=== PATIENT | male | born 1955 | race Caucasian/White ===

== ENCOUNTER 2016-09-25 06:06 | Outpatient (CLI) ==
[2013-07-30 07:19] VITALS: BMI 20.7
[2016-09-25] MEDS ORDERED: DOBUTAMINE 250 ML IV ONE (07:04)
[2016-09-25] MEDS ORDERED: ATROPINE SULFATE PFS ONE (07:05)
--- NOTE | 2016-09-25 09:41 | NM ---
Cardiac Stress Test HISTORY: Chest pain. COMPARISON: 07/01/2011. TECHNIQUE: Resting: The patient was injected with 4.07 mCi of 99m technetium Sestamibi (Cardiolite) intravenou sly after which a "resting" SPECT study of the heart was performed. Stress: The stress portion of the examination was cancelled due to low blood pressure and heart rate . FINDINGS: The resting perfusion images demonstrate a large region of reduced to absent activity in the inferior wall consistent with the previously observed large inferior wall myocardial infarction. IMPRESSION: 1. Left ventricular myocardial perfusion demonstrates findings consistent with a previously observe d large inferior wall myocardial infarction. 2. The stress portion of the examination was cancelled due to low blood pressure and heart rate.
== END 2016-09-25 06:07 | disposition home or self-care (01) ==
LOC: CAR 06:06
PROVIDERS: ATTEND Emergency Medicine
DX: R07.9 Chest pain, unspecified (principal); I25.10 Atherosclerotic heart disease of native coronary artery without angina pectoris; Z95.5 Presence of coronary angioplasty implant and graft; Z72.0 Tobacco use

== ENCOUNTER 2016-09-25 08:02 | Emergency (ER) ==
[2016-09-25 08:07] VITALS: BP 111/67; TEMP 97.1; BMI 22.5
[2016-09-25 08:21] LABS: BASOPHILS % (AUTO) 0.5 % (0.0-3.0); EOSINOPHILS # (AUTO) 0.2 K/ul (0.0-0.7); HEMATOCRIT 40.2 % (42.0-52.0); IMMATURE GRANULOCYTE % (AUTO) 0.4 % (0.0-5.0); LYMPHOCYTES # (AUTO) 2.5 K/uL (0.60-3.4); LYMPHOCYTES % (AUTO) 33.1 (10.0-50.0); MEAN CORPUSCULAR HEMOGLOBIN 31.3 pg (27.0-31.0); MEAN CORPUSCULAR HGB CONC 34.8 (31.8-35.4); MEAN CORPUSCULAR VOLUME 89.7 fl (80.0-94.0); MONOCYTES # (AUTO) 0.6 K/uL (0.4-2.0); MONOCYTES % (AUTO) 8.3 (0-10); NEUTROPHILS # (AUTO) 4.2 K/ul (2.0-6.9); NEUTROPHILS % (AUTO) 55.7; PLATELET COUNT 209 10^3/uL (140-440); RED BLOOD COUNT 4.48 10^6/ul (4.70-6.10); WHITE BLOOD COUNT 7.55 K/ul (4.2-10.2)
--- NOTE | 2016-09-25 08:21 | ED.PDOC ---
General ED Provider: Dr. VARSHA SANTORO JR Chief Complaint: Chest Pain Stated Complaint: patient was to have a dobutamine stress test and while they were starting his iv he became diaphoretic and pale, and pressure to midsternal area. patient was nauseated. blood pressure was 64/40 and pulse was 35[End]5- 10 min 97.1 51 16 100% 111/67 : 07/30/13 has had two heart attacks, no pain with either [ sore in mouth for 3 months (note difficult historian. Skin: (3mmlesion left lateral nose at nare/labial crease, 5mm lesion left lateral upper lip at inner [place] border) Hypothyroid (I used to have it it went away), Dyslipidemia: [place] (2003 and 2009), Hypertension(melanoma on back, note normal lesion uvula). Family History: Heart (3 brothers before 50 of [place]), Hypertension, Diabetes , Cancer. ENT:Nose normal (note flat fleshy raised lesion),, Neoplasm of skin. Instructions: Acute Nausea and Vomiting (ED), Chronic Diarrhea (ED) Time Seen by Physician: 08:19 Mode of Arrival: Walk-In Information Source: Patient Exam Limitations: No limitations Primary Care Provider: ANGEL OVALLE Nursing and Triage Documentation Reviewed and Agree: No Review of Systems - Review Of Systems Constitutional: Reports: Diaphoresis, Malaise Eyes: Reports: No symptoms Ears, Nose, Mouth, Throat: Reports: No symptoms Respiratory: Reports: Short of air Cardiac: Reports: Chest pain, Palpitations GI: Reports: Nausea : Reports: No symptoms Musculoskeletal: Reports: No symptoms Skin: Reports: No symptoms Neurological: Reports: Anxiety Endocrine: Reports: No symptoms Hematologic/Lymphatic: Reports: No symptoms All Other Systems: Other Past Medical History - Past Medical History Endocrine: Reports: None. Denies: Hypothyroid ( (I used to have it it went away )) Cardiovascular: Reports: CAD (has had two heart attacks, no pain with either, [place] (2003 and 2009)) Respiratory: Reports: COPD Hematological: Reports: None Gastrointestinal: Reports: None Genitourinary: Reports: None Neuro/Psych: Reports: None Musculoskeletal: Reports: None Cancer: Reports: Other ((melanoma on back, note normal lesion uvula)) - Surgical History General Surgical History: Reports: Stent - Family History Family History: Reports: Heart (Heart (3 brothers before 50 of [place])), Hypertension, Diabetes, Cancer - Social History Smoking Status: Current every day smoker Amount Smokes or Chewing Tobacco Used Daily: 1PPD Smoking Cessation Counseling Time: > 3 min - 10 min Hx Substance Use: No Alcohol Screening: None Physical Exam - Physical Exam Appearance: Well-appearing, Thin Pain Distress: Moderate Eyes: GAYATRI, EOMI, Conjunctiva clear ENT: Ears normal, Nose normal, Oropharynx normal Neck: Supple Respiratory: Airway patent, Breath sounds clear, Breath sounds equal, Breath sounds diminished, Respirations nonlabored Cardiovascular: RRR, Pulses normal, No rub, No murmur GI/: Soft, Nontender, No masses, Bowel sounds normal, No Organomegaly Musculoskeletal: Normal strength, ROM intact, No edema, No calf tenderness Skin: Diaphoretic Neurological: Sensation intact, Alert, Oriented Psychiatric: Anxious Interpretation - Radiology Interpretation Radiology Interpretation By: Radiologist Radiology Results: Negative Exam Interpreted: CXR - EKG Interpretation Time of EKG #1: 07:55 Rate: Sammy Rhythm: Sinus Ectopy: None [place]: Left ST Segment: Other (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3 H MCHC 34.8 RDW Coeff of Davi 12.7 Plt Count 209 Immature Gran % (Auto) 0.4 Neut % (Auto) 55.7 Lymph % (Auto) 33.1 Josephine % (Auto) 8.3 Eos % (Auto) 2.0 Baso % (Auto) 0.5 Immature Gran # (Auto) 0.0 Neut # 4.2 Lymph # 2.5 Josephine # 0.6 Eos # 0.2 Baso # 0.0 D-Dimer 0.56 Sodium 141 Potassium 3.7 Chloride 107 Carbon Dioxide 24 Anion Gap 13.7 BUN 8 Creatinine 0.93 Estimated GFR (MDRD) 83.00 BUN/Creatinine Ratio 8.60 Glucose 119 H Calcium 9.3 Total Bilirubin 0.53 AST 18 ALT 16 Alkaline Phosphatase 71 Total Creatine Kinase 87 Troponin I < 0.0100 B-Natriuretic Peptide 49 Total Protein 6.7 Albumin 3.6 Globulin 3.1 Albumin/Globulin Ratio 1.16 TSH 4.395 Orders Category Date Time Status EKG-(ED ONLY) Stat CARDIO 09/25/16 08:10 Ordered ABG Stat LAB 09/25/16 08:09 Stop Req B-TYPE NATRIURETIC PEPTIDE Stat LAB 09/25/16 08:10 Completed CBC W/ AUTO DIFF Stat LAB 09/25/16 08:10 Completed COMPREHENSIVE METABOLIC PANEL Stat LAB 09/25/16 08:10 Completed CREATINE KINASE Stat LAB 09/25/16 08:10 Completed D-DIMER Stat LAB 09/25/16 08:10 Completed TROPONIN I Stat LAB 09/25/16 08:10 Completed TSH [THYROID STIMULATING HORMONE] Stat LAB 09/25/16 08:15 Completed CHEST, 1V AP ONLY Stat RADS 09/25/16 08:10 Completed Vital Signs: Temp Pulse Resp BP Pulse Ox 09/25/16 08:03 97.1 F L 51 L 16 111/67 100 CHRISTY Risk Score CHRISTY Risk Score: Risk Score Odds of by 30D 0 0.1 (0.1-0.2) 1 0.3 (0.2-0.3) 2 0.4 (0.3-0.5) 3 0.7 (0.6-0.9) 4 1.2 (1.0-1.5) 5 2.2 (1.9-2.6) 6 3.0 (2.5-3.6) 7 4.8 (3.8-6.1) Departure - Departure Time of Disposition: 09:36 Disposition: TSF SHORT-TRM HOSP Discharge Problem: Chest pain Instructions: Acute Coronary Syndrome (ED) Condition: Fair Pt referred to PMD for follow-up: Yes (FOLLOW UP CARDIOLOGY THEN WILL FOLLOW) Allergies/Adverse Reactions: Allergies No Known Allergies Allergy (Unverified 09/25/16 08:09) Home Medications: Ambulatory Orders Albuterol Sulfate [Proair Hfa] 2 puff IH Q6H 03/09/13 Atorvastatin Calcium [Lipitor] 20 mg PO BEDTIME 03/09/13 Clopidogrel Bisulfate [Plavix] 75 mg PO DAILY 03/09/13 Lisinopril [Zestril] 20 mg PO DAILY 03/09/13 Lorazepam [Ativan] 1 mg PO PRN PRN 03/09/13 Niacin [Niaspan] 1,000 mg PO DAILY 03/09/13 Ranitidine HCl [Zantac] 150 mg PO BIDAC 03/09/13
--- NOTE | 2016-09-25 08:28 | DI ---
EXAM: Chest one view, frontal view only. HISTORY: Chest pain. COMPARISON: 06/28/2016. FINDINGS: The heart size is normal. There is no pulmonary vascular congestion. The lungs are cecilia r. No pleural effusion or pneumothorax is seen. No acute osseous abnormality is identified. Since the prior study, there has been no significant interval change. IMPRESSION: No acute cardiopulmonary process.
[2016-09-25 08:49] LABS: ALANINE AMINOTRANSFERASE 16 U/L (12-78); ALBUMIN 3.6 g/dL (3.4-5.0); ALBUMIN/GLOBULIN RATIO 1.16; ALKALINE PHOSPHATASE 71 U/L (56-119); ANION GAP 13.7; ASPARTATE AMINO TRANSFERASE 18 U/L (15-37); BILIRUBIN,TOTAL 0.53 mg/dL (0.00-1.20); BLOOD UREA NITROGEN 8 mg/dL (7-18); CALCIUM 9.3 mg/dL (8.2-10.2); CARBON DIOXIDE 24 mmol/L (23-31); CHLORIDE 107 mmol/L (98-107); CREATINE KINASE 87 U/L; CREATININE 0.93 mg/dL (0.60-1.10); GLUCOSE 119 mg/dL (82-115); POTASSIUM 3.7 mmol/L (3.5-5.1); SODIUM 141 mmol/L (136-145); TOTAL PROTEIN 6.7 g/dL (5.8-8.1)
== END 2016-09-25 10:33 | disposition short-term general hospital (02) ==
LOC: ED 08:02
DX: R07.9 Chest pain, unspecified (principal); R00.2 Palpitations; I25.10 Atherosclerotic heart disease of native coronary artery without angina pectoris; I25.2 Old myocardial infarction; J44.9 Chronic obstructive pulmonary disease, unspecified; F17.210 Nicotine dependence, cigarettes, uncomplicated; E78.5 Hyperlipidemia, unspecified; Z79.899 Other long term (current) drug therapy; Z95.5 Presence of coronary angioplasty implant and graft
CPT/HCPCS: 36415; 80053; 82550; 83880; 84443; 84484; 85025; 85379; 93005; 93010; 99285

== ENCOUNTER 2016-09-25 10:34 | Outpatient (CLI) ==
[2016-09-25 08:07] VITALS: BMI 22.5
== END 2016-09-25 10:35 ==
LOC: AMBL 10:34
PROVIDERS: ATTEND Emergency Medicine
DX: R00.1 Bradycardia, unspecified (principal)

== ENCOUNTER 2019-01-14 08:33 | Emergency (ER) ==
[2019-01-14 08:43] VITALS: BP 122/78; TEMP 97.4; BMI 22.4
--- NOTE | 2019-01-14 09:45 | CT ---
EXAM: CT of the head without contrast History: Head trauma. Technique: Multiplanar CT images through the head were obtained without the administration of IV con trast Findings: There is mild mucosal thickening of the left maxillary sinus. Mastoid air cells are clear in general. No acute calvarial abnormalities. Intracranially the ventricular and cisternal spaces are normal in size, shape and configuration for a patient of this age. No dominant mass or midline shift. No hydrocephalous. No acute intracranial hemorrhage or abnormal extraaxial fluid collections. Impression: No acute intracranial process
--- NOTE | 2019-01-14 09:47 | CT ---
EXAM: CT of the cervical spine without contrast History: Head and neck trauma. Technique: Multiplanar CT images through the cervical spine were obtained without the administration of IV contrast Findings: The visualized upper lungs are clear. The visualized airway remains patent. No acute fracture or subluxation of the cervical spine. No prevertebral soft tissue swelling. Sever e disc space narrowing at C6-7 and moderate to severe disc space narrowing at C5-6 with endplate scle rosis and osteophyte formation. Bony spinal canal is not significantly compromised. Moderate to sev ere bilateral bony neural foraminal narrowing at C5-6 and C6-7 secondary to uncovertebral and facet h ypertrophy. Impression: No acute osseous abnormality of the cervical spine. Degenerative changes
--- NOTE | 2019-01-14 09:53 | CT ---
EXAM: CT of the maxillofacial region without contrast History: Left jaw pain and trauma. Technique: Multiplanar CT images through the maxillofacial region were obtained without the administ ration of IV contrast Findings: Orbits are intact. The visualized intracranial contents demonstrate no acute findings. T here is mild to moderate mucosal thickening and fluid within the left maxillary sinus. Paranasal sin uses are otherwise clear. Mastoid air cells are clear. Multiple missing teeth. No acute fracture o r dislocation. Osseous erosions of the head of the left mandibular condyle with widening of the temp oromandibular joint space possible due to synovial soft tissue thickening. Impression: 1. No acute fracture. 2. Erosive changes involving the head of the left mandibular condyle with widening of the left tempo romandibular joint space possibly due to synovial soft tissue thickening. Consider inflammatory or i nfectious arthropathy. 3. Left maxillary sinusitis
--- NOTE | 2019-01-14 10:07 | ED.PDOC ---
General ED Provider: Dr. CHUY ROSSI Chief Complaint: Syncope Stated Complaint: hada syncopal episde 3 days ago fell in the process injured left ja, neck present to emergency dept for evaluation of jaw pian Time Seen by Physician: 08:45 (seen with may at all times nofurther syncope reported ) Mode of Arrival: Walk-In Information Source: Patient Exam Limitations: No limitations Primary Care Provider: ANGEL OVALLE Nursing and Triage Documentation Reviewed and Agree: Yes Does patient meet sepsis criteria?: No System Inflammatory Response Syndrome: Not Applicable Sepsis Protocol: For patient's 13 years and over: Temp is 96.8 and below OR 101 and greater Pulse >90 BPM Resp >20/minute Acutely Altered Mental Status Are patient's symptoms suggestive of a new infection, such as: -Pneumonia -Skin, Soft Tissue -Endocarditis -UTI -Bone, Joint Infection -Implantable Device -Acute Abdominal Infection -Wound Infection -Meningitis -Blood Stream Catheter Infection -Unknown Trauma/Injury Complaint Exam - Facial Injury Complaint/Exam Location of Pain: Reports: Left (jaw, neck ,head ) Mechanism of Injury: Reports: Trauma Onset/Duration: 3 days ago Symptoms Are: Still present (jaw pain) Onset of Pain: Reports: Hours Initial Severity: Mild Current Severity: Mild Location: Reports: Discrete (left jaw ) Associated Signs and Symptoms: Denies: Swelling, Redness, Bruising, Numbness, Tingling, Fever, Polymyalgia, Weight loss, Visual defects, Tinnitus, Headache, Loss of consciousness Facial Findings: Present: Normal findings Differential Diagnoses: Fracture, Pain of unknown etiology Review of Systems - Review Of Systems Constitutional: Reports: No symptoms Eyes: Reports: No symptoms Ears, Nose, Mouth, Throat: Reports: Mouth pain (left jaw) Respiratory: Reports: No symptoms Cardiac: Reports: No symptoms GI: Reports: No symptoms : Reports: No symptoms Musculoskeletal: Reports: Neck pain Skin: Reports: No symptoms Neurological: Reports: Headache Endocrine: Reports: No symptoms Hematologic/Lymphatic: Reports: No symptoms All Other Systems: Reviewed and Negative Past Medical History - Past Medical History Previously Healthy: Yes Endocrine: Reports: None. Denies: Hypothyroid ( (I used to have it it went away )) Cardiovascular: Reports: CAD (has had two heart attacks, no pain with either, [place] (2003 and 2009)) Respiratory: Reports: COPD Hematological: Reports: None Gastrointestinal: Reports: None Genitourinary: Reports: None Neuro/Psych: Reports: None Musculoskeletal: Reports: None Cancer: Reports: Other ((melanoma on back, note normal lesion uvula)) - Surgical History General Surgical History: Reports: Stent - Family History Family History: Reports: Heart (Heart (3 brothers before 50 of [place])), Hypertension, Diabetes, Cancer - Social History Smoking Status: Current every day smoker Hx Substance Use: No Alcohol Screening: None - Immunizations Tetanus Shot up to Date: Yes Physical Exam - Physical Exam Appearance: Well-appearing, No pain distress, Well-nourished Eyes: GAYATRI, EOMI, Conjunctiva clear ENT: Ears normal, Nose normal, Oropharynx normal (left tmj tender , oral exam and air way wnl ) Respiratory: Airway patent, Breath sounds clear, Breath sounds equal, Respirations nonlabored Cardiovascular: RRR, Pulses normal, No rub, No murmur GI/: Soft, Nontender, No masses, Bowel sounds normal, No Organomegaly Musculoskeletal: Normal strength, ROM intact, No edema, No calf tenderness Skin: Warm, Dry, Normal color Neurological: Sensation intact, Motor intact, Reflexes intact, Cranial nerves intact, Alert, Oriented Psychiatric: Affect appropriate, Mood appropriate Interpretation - Radiology Interpretation Radiology Interpretation By: Radiologist Radiology Results: Positive (inflammatory injury left jwa) - Corn Miller Rate: Normal Rhythm: Sinus Ectopy: None - EKG Interpretation Rate: Normal Rhythm: Sinus (right bundel branch block) Ectopy: None Keller: Left (no changes from old tracing) Critical Care Note - Critical Care Note Total Time (mins): 0 Course - Course Hematology/Chemistry: 01/14/19 09:02 01/14/19 09:02 Orders, Labs, Meds: Lab Review 01/14/19 01/14/19 09:02 09:02 WBC 8.41 RBC 4.07 L Hgb 12.5 L Hct 37.0 L MCV 90.9 MCH 30.7 MCHC 33.8 RDW Coeff of Davi 13.1 Plt Count 217 Immature Gran % (Auto) 0.2 Neut % (Auto) 64.8 Lymph % (Auto) 21.8 Bradley % (Auto) 10.6 H Eos % (Auto) 2.4 Baso % (Auto) 0.2 Immature Gran # (Auto) 0.0 Neut # (Auto) 5.5 Lymph # (Auto) 1.8 Bradley # (Auto) 0.9 Eos # (Auto) 0.2 Baso # (Auto) 0.0 Sodium 135.8 Potassium 4.40 Chloride 103.3 Carbon Dioxide 25.9 Anion Gap 11.00 BUN 13.0 Creatinine 0.98 Estimated GFR (MDRD) 78.00 BUN/Creatinine Ratio 13.26 Glucose 104.7 Calcium 9.17 Total Bilirubin 0.68 AST 27.3 ALT 19.1 Alkaline Phosphatase 75.8 Total Protein 7.04 Albumin 4.27 Globulin 2.77 Albumin/Globulin Ratio 1.54 Orders Category Date Time Status EKG-(ED ONLY) Stat CARDIO 01/14/19 08:53 Completed CBC W/ AUTO DIFF Stat LAB 01/14/19 09:02 Completed COMPREHENSIVE METABOLIC PANEL Stat LAB 01/14/19 09:[address] CERVICAL SPINE W/O CONTRAST Stat RADS 01/14/19 08:[address] HEAD W/O CONTRAST Stat RADS 01/14/19 08:[address] MAXILLOFACIAL W/O CONTRAST Stat RADS 01/14/19 08:53 Completed Vital Signs: Temp Pulse Resp BP Pulse Ox 01/14/19 08:36 97.4 F L 64 20 122/78 96 Departure - Departure Time of Disposition: 10:09 Disposition: HOME SELF-CARE Discharge Problem: Jaw pain, Syncope Instructions: Syncope (ED), Temporomandibular Disorder (ED) Condition: Good Pt referred to PMD for follow-up: Yes IPMP verified?: No Additional Instructions: Please call your Family Physician as soon as possible to schedule a follow-up appointment.your jaw is not broken but due to impact of a fall as you had described can be inflammed Allergies/Adverse Reactions: Allergies No Known Allergies Allergy (Verified 01/14/19 08:55) Home Medications: Ambulatory Orders Albuterol Sulfate [Proair Hfa] 2 puff IH Q6H 03/09/13 Atorvastatin Calcium [Lipitor] 20 mg PO BEDTIME 03/09/13 Lisinopril [Zestril] 20 mg PO DAILY 03/09/13 Lorazepam [Ativan] 1 mg PO PRN PRN 03/09/13 Ranitidine HCl [Zantac] 150 mg PO BIDAC 03/09/13 Aspirin [Low Dose Aspirin Ec] 81 mg PO DAILY 11/05/16 Carvedilol 3.125 mg PO BID 11/05/16 Sacubitril/Valsartan [Entresto 24 Mg-26 Mg Tablet] 1 each PO QID 11/05/16 Spironolactone, Micronized [Spironolactone] 25 gm MC DAILY powder 11/05/16 Warfarin Sodium 5 mg PO DIRECTED 01/14/19 Warfarin Sodium 7.5 mg PO DIRECTED 01/14/19 Disposition Discussed With: Patient
== END 2019-01-14 10:20 | disposition home or self-care (01) ==
LOC: ED 08:33
DX: R68.84 Jaw pain (principal); M54.2 Cervicalgia; R51 Headache; R55 Syncope and collapse; W19.XXXA Unspecified fall, initial encounter; D64.9 Anemia, unspecified; I25.2 Old myocardial infarction; F17.210 Nicotine dependence, cigarettes, uncomplicated; Z79.899 Other long term (current) drug therapy
CPT/HCPCS: 36415; 80053; 85025; 93005; 93010; 99283

== ENCOUNTER 2019-01-27 06:39 | Outpatient (CLI) | payer OTHER ==
--- NOTE | 2019-01-28 10:05 | ECHO2D ---
Date of Exam: 01/27/19 Ordering Physician: DR. ANGEL OVALLE Room #: OP Reason for Echo: ISCHEMIC CARDIOMYOPATHY M-Mode Normal Adult Results LV Dimensions Normal Adult Results AoV Opening excursions >1.6 >1.6 LVEDD-base- 3.5-5.8 5.6 Ao root dimensions 2.0-3.7 3.4 LVESD-base- 3.1-4.6 L. Atrium dimensions 1.9-3.8 3.4 Post. Wall thickness 0.8-1.1 1.2 IV septum (thickness) 0.7-1.2 1.3 Post. Wall excursion 0.72-1.3 NORMAL Septal motion 0.2 Systolic motion R. Ventricular cavity 1.5-2.0 3.0 LVEF 60% 41% Paradoxical septal wall motion NORMAL 2-D : 2-D M Mode Echocardiogram was performed using apical four chamber and left parasternal long and short axis views. Mitral, tricuspid and aortic valves appear to be normal. Contractility of the left ventricle seems to be normal, so is the cavity size. Left atrial cavity size and aortic root appear to be normal. There is no pericardial effusion. There is no thrombus noted in the left ventricular or left aortic cavity. No mitral valve prolapse noted. HYPO TO AKINETIC SEPTUM M-MODE: MV: NORMAL AV: NORMAL TV: NORMAL PV: CHAMBER SIZE: NORMAL WALL MOTION: HYPO TO AKINETIC SEPTUM PERICARDIUM: NORMAL INTERPRETATION: 1. BORDERLINE LEFT VENTRICULAR HYPERTROPHY 2. ABNORMAL SEPTAL MOTION--HYPO TO AKINETIC WITH EJECTION FRACTION 41% 3. NORMAL VALVES 4. NORMAL LEFT VENTRICLE AND LEFT ATRIAL SIZE MTDD
== END 2019-01-27 06:40 | disposition home or self-care (01) ==
LOC: CAR 06:39
PROVIDERS: ATTEND Internal Medicine
DX: I25.5 Ischemic cardiomyopathy (principal)